=== PATIENT | male | born 1970 | race Two or more races ===

== ENCOUNTER 2017-05-31 14:19 | Inpatient (IN) | payer OTHER ==
[2017-05-31 16:29] VITALS: BMI 24.5
[2017-05-31] MEDS ORDERED: MAGNESIUM HYDROX 2400MG/30ML ORAL SUSPENSION 30 ML CUP PO PRN (17:07)
[2017-05-31] MEDS ORDERED: MENTHOL/PHENOL 1 EACH UD MM PRN (17:07)
[2017-05-31] MEDS ORDERED: MAGNESIUM CITRATE 300 ML BOTTLE PO PRN (17:07)
[2017-05-31] MEDS ORDERED: ACETAMINOPHEN 325 MG TABLET (FP) PO PRN (17:07)
[2017-05-31] MEDS ORDERED: IBUPROFEN 400 MG TABLET (FP) PO PRN (17:07)
[2017-05-31] MEDS ORDERED: LOPERAMIDE HCL 2 MG CAPSULE PO PRN (17:07)
[2017-05-31] MEDS ORDERED: MAG HYDROX/AL HYDROX/SIMETH 30 ML UNIT-DOSE CUP PO PRN (17:07)
[2017-05-31] MEDS ORDERED: guaiFENesin/D-METHORPHAN HB 10 ML UNIT-DOSE CUPS PO PRN (17:07)
[2017-05-31] MEDS ORDERED: P-EPHED 60MG/TRIPROLIDI 2.5MG TABLET PO PRN (17:07)
[2017-05-31] MEDS ORDERED: hydrOXYzine PAMOATE 50 MG CAPSULE (FP) PO PRN (17:07)
--- NOTE | 2017-05-31 17:07 | HP ---
CIWA Score - CIWA Score Nausea/Vomitin Muscle Tremors: 4-Moderate,w/Arms Extend Anxiety: 4-Mod. Anxious/Guarded Agitation: 4-Moderately Restless Paroxysmal Sweats: 3 Orientation: 1-Uncertain about Date Tacttile Disturbances: 1-Very Mild Itch/Numbness Auditory Disturbances: 0-None Visual Disturbances: 0-None Headache: 1-Very Mild CIWA-Ar Total Score: 21 Admission ROS S - HPI Chief Complaint: alcohol withdrawal sx Allergies/Adverse Reactions: Allergies Allergy/AdvReac Type Severity Reaction Status Date / Time No Known Allergies Allergy Verified 05/31/17 17:05 History of Present Illness: 47 yo m with h/o chronic alcoholism, drinks daily develops GINO when he does not drink has had several episodes of detox in past PMHX dm, HTN, no suicide attempts in past, no suicidal ideation at present no h/o seizures, no DTs. no blackouts or recent wt loss reported. Reports falling in shower 3 weeks ago and had stiches in ED at [facility] . He returned to [facility] ed and had them removed today. no pain. last drink yesterday Exam Limitations: No Limitations - Ebola screening Have you traveled outside of the country in the last 21 days: No Have you had contact with anyone from an Ebola affected area: No Have you been sick,other than usual withdrawal symptoms: No Do you have a fever: No - Review of Systems Constitutional: Chills, Diaphoresis, Night Sweats, Changes in sleep, Weight Stable EENT: reports: No Symptoms Reported Respiratory: reports: No Symptoms reported Cardiac: reports: No Symptoms Reported GI: reports: Diarrhea, Nausea, Poor Appetite, Vomiting, Indigestion, Abdominal cramping : reports: No Symptoms Reported Musculoskeletal: reports: No Symptoms Reported Integumentary: reports: Flushing, Sweating Neuro: reports: Headache, Numbness, Paresthesia, Tremors, Weakness Endocrine: reports: No Symptoms Reported Hematology: reports: No Symptoms Reported Psychiatric: reports: Judgement Intact, Mood/Affect Appropiate, Orientated x3, Anxious, Depressed Other Systems: Reviewed and Negative Patient History - Patient Medical History Hx Anemia: No Hx Asthma: No Hx Chronic Obstructive Pulmonary Disease (COPD): No Hx Cancer: No Hx Cardiac Disorders: No Hx Congestive Heart Failure: No Hx Hypertension: No Hx Hypercholesterolemia: Yes (RESOLVED--NO MEDS) Hx Pacemaker: No HX Cerebrovascular Accident: No Hx Seizures: No Hx Dementia: No Hx Diabetes: Yes ( NEWLY DX- ACCUCHECK =242 MG/DL; DID NOT START TAKING THE RX MEDS YET.) Hx Gastrointestinal Disorders: No Hx Liver Disease: No Hx Genitourinary Disorders: No Hx Sexually Transmitted Disorders: No Hx Renal Disease (ESRD): No Hx Thyroid Disease: No Hx Human Immunodeficiency Virus (HIV): No (NEGATIVE HX) Hx Hepatitis C: No Hx Depression: No Hx Suicide Attempt: No (DENIES) Hx Bipolar Disorder: No Hx Schizophrenia: No - Patient Surgical History Past Surgical History: No Anesthesia Reaction: No - PPD History Previous Implant?: Yes Documented Results: Negative w/o proof Implanted On Prior R Admission?: Yes Date: 10/14/14 PPD to be Administered?: Yes - Reproductive History Patient is a Female of Child Bearing Age (11 -55 yrs old): No Patient : No - Smoking Cessation Smoking history: Never smoked Have you smoked in the past 12 months: No If you are a former smoker, when did you quit?: STOPPED AT 17 YRS OLD Hx Chewing Tobacco Use: No Initiated information on smoking cessation: Yes 'Breaking Loose' booklet given: 05/31/17 - Substance & Tx. History Hx Alcohol Use: Yes Hx Substance Use: No Substance Use Type: Alcohol Hx Substance Use Treatment: Yes (multiple admissions for inpatient detox ) - Substances Abused Alcohol Route: Oral Frequency: Daily Amount used: 4 25 oz beers Age of first use: 19 Date of Last Use: 05/31/17 Family Disease History - Family Disease History Family Disease History: Diabetes: Mother, Sister (FOUR SISTERS WITH DM) Admission Physical Exam S - Vital Signs Vital Signs: Vital Signs - 24 hr 05/31/17 16:27 Temperature 96.2 F L Pulse Rate 94 H Respiratory 20 Rate Blood Pressure 130/81 - Physical General Appearance: Yes: Nourished, Disheveled, Mild Distress HEENTM: Yes: EOMI, Hearing grossly Normal, Normal ENT Inspection, Normocephalic , Normal Voice, JOSE C, Pharynx Normal, Other (healing head wound , no infection, stitches removed) Respiratory: Yes: Within Normal Limits, Chest Non-Tender, Lungs Clear, Normal Breath Sounds, No Respiratory Distress, No Accessory Muscle Use Neck: Yes: Within Normal Limits, No masses,lesions,Nodules, Supple, Trachea in good position Breast: Yes: Breast Exam Deferred Cardiology: Yes: Within Normal Limits, Regular Rhythm, Regular Rate, S1, S2 Abdominal: Yes: Within Normal Limits, Normal Bowel Sounds, Non Tender, Soft Genitourinary: Yes: Within Normal Limits Back: Yes: Within Normal Limits, Normal Inspection Musculoskeletal: Yes: full range of Motion, Gait Steady, Pelvis Stable, Joint Stiffness, Joint swelling (middle toe deforemdnon tender, no erytehma, some dusky discolouration non tender, scab on top, old) Extremities: Yes: Normal Capillary Refill, Normal Range of Motion, Non-Tender, Tremors, Pedal Edema (2+ pitting) 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, Fully Oriented, Alert, Motor Strength 5/5, Normal Response, Depressed Affect Integumentary: Yes: Diaphoresis, Moist Lymphatic: Yes: Within Normal Limits - Addiitonal Findings: withdrawal sx - Diagnostic (1) Alcohol dependence with uncomplicated withdrawal Current Visit: Yes Status: Acute (2) Diabetes mellitus Current Visit: Yes Status: Acute Qualifiers: Diabetes mellitus type: type 2 Diabetes mellitus complication status: without complication (3) Head trauma Current Visit: Yes Status: Acute Cleared for Admission [facility] - Detox or Rehab [facility] Level of Care: Medically Managed Detox Regimen/Protocol: Librium [facility] Breath Alcohol Content Breath Alcohol Content: 0.035 Urine Drug Screen - Results Drug Screen Negative: No Urine Drug Screen Results: BZO-Benzodiazepines
[2017-05-31] MEDS ORDERED: PATIENT'S OWN MEDICATION (NON-FORMULARY) (Metformin Hcl [Glucophage] 1,000 MG) PO SCH (17:15)
[2017-05-31] MEDS ORDERED: chlordiazePOXIDE HCL 25 MG CAPSULE PO ONE (17:23)
[2017-05-31] MEDS ORDERED: chlordiazePOXIDE HCL 25 MG CAPSULE ONE (20:04)
[2017-05-31 20:40] LABS: URINE APPEARANCE CLEAR; URINE BILIRUBIN NEGATIVE (NEGATIVE); URINE BLOOD NEGATIVE (NEGATIVE); URINE COLOR AMBER; URINE GLUCOSE (UA) NEGATIVE (NEGATIVE); URINE KETONE TRACE (NEGATIVE); URINE NITRITE NEGATIVE (NEGATIVE); URINE UROBILINOGEN 4.0 E.U/dl mg/dL (0.2-1.0)
[2017-05-31 20:52] LABS: URINE PROTEIN 1+ (NEGATIVE)
[2017-05-31 21:15] LABS: URINE MUCUS RARE; URINE RBC <1 /hpf (0-3); URINE WBC 1 /hpf (3-5)
[2017-05-31] MEDS: chlordiazePOXIDE HCL 25 MG CAPSULE PO SCH (22:42)
[2017-05-31] MEDS: THIAMINE HCL 100 MG TABLET (FP) PO SCH (22:42)
[2017-05-31] MEDS: diphenhydrAMINE HCL 50 MG CAPSULE PO PRN (22:44)
[2017-05-31 22:51] LABS: URINE LEUK ESTERASE Negative (NEGATIVE)
[2017-06-01] MEDS: diphenhydrAMINE HCL 50 MG CAPSULE PO PRN ×2 (00:38→22:44)
[2017-06-01] MEDS: chlordiazePOXIDE HCL 25 MG CAPSULE PO SCH ×4 (06:04→22:43)
[2017-06-01] MEDS: metFORMIN HCL 500 MG TABLET (FP) PO SCH (06:13)
--- NOTE | 2017-06-01 08:49 | CONSULT ---
[facility] Psychiatric Consult - Data Date of interview: 06/01/17 Admission source: [facility] Identifying data: This is 47 years old male with psychiatric hospitalization history bintoxicate dwith: Alcohol Substance Abuse History: Urine Drug Screen Results: BZO-Benzodiazepines. Smoking history: Never smoked. Have you smoked in the past 12 months: No. If you are a former smoker, when did you quit?: STOPPED AT 17 YRS OLD. Hx Chewing Tobacco Use: No. Initiated information on smoking cessation: Yes. 'Breaking Loose' booklet given: 05/31/17. - Substance & Tx. History. Hx Alcohol Use: Yes. Hx Substance Use: No. Substance Use Type: Alcohol. Hx Substance Use Treatment: Yes (multiple admissions for inpatient detox ). - Substances Abused. Alcohol. Route: Oral. Frequency: Daily. Amount used: 4 25 oz beers. Age of first use: 19. Date of Last Use: 05/31/17 Medical History: Hypercholesterolemia, DM-2, Head trauma history, using wheelchair after head imjury Psychiatric History: Reports unclear psycvhiatric admission 2 weeks ago at [facility] after falling episode and following head injury Physical/Sexual Abuse/Trauma History: Denies Additional Comment: Urine Drug Screen Results: BZO-Benzodiazepines Mental Status Exam - Mental Status Exam Alert and Oriented to: Person Cognitive Function: Fair Patient Appearance: Unkempt Mood: Withdrawn, Anxious Affect: Flat Patient Behavior: Cooperative Speech Pattern: Slurred Voice Loudness: Mildly Soft/Quiet Thought Process: Circumstantial Thought Disorder: Being Controlled Hallucinations: Denies Suicidal Ideation: Denies Homicidal Ideation: Denies Insight/Judgement: Fair Sleep: Fair Appetite: Fair Muscle strength/Tone: Mild Hypotonicity Gait/Station: Deferred Additional Comments: Observation. Detox Unit Care Protocol Psychiatric Findings - Problem List ([place] 1, 2,3) (1) Alcohol dependence with uncomplicated withdrawal Current Visit: Yes Status: Acute (2) Alcohol dependence Current Visit: No Status: Acute (3) Alcohol-induced mood disorder Current Visit: Yes Status: Suspected - Initial Treatment Plan Initial Treatment Plan: Observation. Detox Unit Care Protocol
[2017-06-01 10:42] LABS: MCHC 32.3 g/dl (32.0-35.9); MEAN CELL VOLUME 98.8 fl (80-96); MEAN PLT VOLUME 10.8 fl (7.5-11.1); RDW 15.6 % (11.9-15.9); WHITE BLOOD COUNT 4.7 K/mm3 (4.0-10.0)
[2017-06-01] MEDS: PRENATAL VITAMINS W/ FOLIC ACID TABLET (FP) PO SCH (10:46)
[2017-06-01 10:51] LABS: PLATELET COUNT 25 K/MM3 (134-434)
[2017-06-01 10:53] LABS: ALBUMIN 2.2 g/dl (3.4-5.0); ANION GAP 9 (8-16); CALCIUM 8.5 mg/dL (8.5-10.1); CO2 25 mmol/L (21-32); GLUCOSE,RANDOM 152 mg/dL (74-106)
[2017-06-01 10:58] LABS: ALK PHOS 211 U/L (45-117); BILIRUBIN,TOTAL 4.3 mg/dL (0.2-1.0); CREATININE 0.6 mg/dL (0.7-1.3); SGOT/AST 168 U/L (15-37); SGPT/ALT 27 U/L (12-78); TOT PROT 8.3 g/dl (6.4-8.2)
--- NOTE | 2017-06-01 11:20 | PN ---
[facility] CIWA - CIWA Score Nausea/Vomitin-No Nausea/No Vomiting Muscle Tremors: 4-Moderate,w/Arms Extend Anxiety: 4-Mod. Anxious/Guarded Agitation: 4-Moderately Restless Paroxysmal Sweats: 1-Minimal Palms Moist Orientation: 0-Oriented Tacttile Disturbances: 3-Moderate Itch/Numb/Burn Auditory Disturbances: 0-None Visual Disturbances: 0-None Headache: 0-None Present CIWA-Ar Total Score: 16 S Progress Note (SOAP) Subjective: ANXIETY,SWEATS/CHILLS,SLIGHT TREMORS,UNSTABLE GAIT(ENCOURAGED WHEELCHAIR WHILE OOB),C/O INSOMNIA. PT HAS A HX DM, HTN AND HYPERLIPIDEMIA. HIS RECENT HOME MEDS IN HIS PHARMACY OF 05/23/17 INCLUDE: METFORMIN 1000 MG PO TWICE A DAY WITH MEALS;JANUVIA 100 MG 1 TAB PO DAILY; GLIPIZIDE XL 10 MG 1 TAB PO DAILY METOPROLOL SUCCINATE 25 MG ER 1 TAB DAILY; LOSARTAN POTASSIUM 50 MG 1 TAB PO DAILY; ATORVASTATIN CALCIUM 40 MG 1 TAB PO DAILY. Objective: 06/01/17 11:20 Vital Signs Temperature 97.0 F L 06/01/17 09:30 Pulse Rate 90 06/01/17 09:30 Respiratory Rate 20 06/01/17 09:30 Blood Pressure 139/70 06/01/17 09:30 O2 Sat by Pulse Oximetry (%) Laboratory Last Values WBC 4.7 K/mm3 (4.0-10.0) 06/01/17 07:20 RBC 3.23 M/mm3 (4.00-5.60) L 06/01/17 07:20 Hgb 10.3 GM/dL (11.7-16.9) L 06/01/17 07:20 Hct 31.9 % (35.4-49) L 06/01/17 07:20 MCV 98.8 fl (80-96) H 06/01/17 07:20 MCH 32.0 pg (25.7-33.7) 06/01/17 07:20 MCHC 32.3 g/dl (32.0-35.9) 06/01/17 07:20 RDW 15.6 % (11.9-15.9) 06/01/17 07:20 Plt Count 25 K/MM3 (134-434) L* 06/01/17 07:20 MPV 10.8 fl (7.5-11.1) 06/01/17 07:20 Sodium 135 mmol/L (136-145) L 06/01/17 07:20 Potassium 3.2 mmol/L (3.5-5.1) L 06/01/17 07:20 Chloride 101 mmol/L (98-107) 06/01/17 07:20 Carbon Dioxide 25 mmol/L (21-32) 06/01/17 07:20 Anion Gap 9 (8-16) 06/01/17 07:20 BUN 5 mg/dL (7-18) L 06/01/17 07:20 Creatinine 0.6 mg/dL (0.7-1.3) L 06/01/17 07:20 Creat Clearance w eGFR > 60 (>60) 06/01/17 07:20 POC Glucometer 150 UNITS (()) 06/01/17 06:07 Random Glucose 152 mg/dL (74-106) H 06/01/17 07:20 Calcium 8.5 mg/dL (8.5-10.1) 06/01/17 07:20 Total Bilirubin 4.3 mg/dL (0.2-1.0) H 06/01/17 07:20 AST 168 U/L (15-37) H 06/01/17 07:20 ALT 27 U/L (12-78) 06/01/17 07:20 Alkaline Phosphatase 211 U/L (45-117) H 06/01/17 07:20 Total Protein 8.3 g/dl (6.4-8.2) H 06/01/17 07:20 Albumin 2.2 g/dl (3.4-5.0) L 06/01/17 07:20 Urine Color [place]att[place] 05/31/17 20:00 Urine Appearance Clear 05/31/17 20:00 Urine pH 7.0 (5.0-8.0) D 05/31/17 20:00 Ur Specific [place] 1.015 (1.005-1.025) 05/31/17 20:00 Urine Protein 1+ (NEGATIVE) H 05/31/17 20:00 Urine Glucose (UA) Negative (NEGATIVE) 05/31/17 20:00 Urine Ketones Trace (NEGATIVE) H 05/31/17 20:00 Urine Blood Negative (NEGATIVE) 05/31/17 20:00 Urine Nitrite Negative (NEGATIVE) 05/31/17 20:00 Urine Bilirubin Negative (NEGATIVE) 05/31/17 20:00 Urine Urobilinogen 4.0 e.u/dl mg/dL (0.2-1.0) 05/31/17 20:00 Ur Leukocyte Esterase Negative (NEGATIVE) 05/31/17 20:00 Urine RBC <1 /hpf (0-3) 05/31/17 20:00 Urine WBC 1 /hpf (3-5) 05/31/17 20:00 Ur Epithelial Cells Rare /hpf (FEW) 05/31/17 20:00 Urine Mucus Rare 05/31/17 20:00 PLT 25 ; K+ = 3.2; HGB/HCT = 10.3/31.9; ELEVATED AST/ALP =168/211 Assessment: 06/01/17 11:24 WITHDRAWAL SX HYPOKALEMIA THROMBOCYTOPENIA ANEMIA UNKNOWN ETIOLOGY Plan: CONTINUE DETOX MONITOR PT'S STATUS FEOSOL DIRECTED KDUR 20 MEQ PO BID REPEAT LFT/CBC ON 06/02/17
[2017-06-01] MEDS ORDERED: POTASSIUM CHLORIDE TABS 20 MEQ TABLET.ER (FP) PO ONE (11:48)
[2017-06-01] MEDS ORDERED: FERROUS SO4 325 MG TABLET (FP) PO ONE (11:49)
[2017-06-01] MEDS ORDERED: FLU VACCINE QUAD 60 MCG/0.5 ML (MDV 17-18) IM ONE (12:00)
[2017-06-01] MEDS: chlordiazePOXIDE HCL 25 MG CAPSULE PO PRN ×2 (13:07→21:04)
--- NOTE | 2017-06-01 13:07 | EKG ---
Test Reason : Blood Pressure : / mmHG Vent. Rate : 081 BPM Atrial Rate : 081 BPM P-R Int : 120 ms QRS Dur : 136 ms QT Int : 436 ms P-R-T Axes : 069 075 036 degrees QTc Int : 506 ms NORMAL SINUS RHYTHM WITH SINUS ARRHYTHMIA RIGHT BUNDLE BRANCH BLOCK ABNORMAL ECG NO PREVIOUS ECGS AVAILABLE Confirmed by DILLON VARGHESE, SILVESTRE ([id number]) on 06/01/2017 1:07:00 PM Referred By: Confirmed By:SILVESTRE CARRANZA MD
[2017-06-01] MEDS: FERROUS SO4 325 MG TABLET (FP) PO SCH (17:39)
[2017-06-01] MEDS: POTASSIUM CHLORIDE ORAL LIQUID 20 MEQ/15 ML PO SCH (19:01)
--- NOTE | 2017-06-01 21:13 | PN ---
[facility] Progress Note Note: Nurse reports patient ambulating with unsteady gait, very confused and hallucinating. V/S b/P 154/75, HR 107, T 99.7, B/S 204mg/dl. Insulin sliding scale ordered, ammonia level ordered and 1:1 Constant observation initiated. Will continue to monitor patient.
--- NOTE | 2017-06-01 21:22 | PN ---
S Progress Note (SOAP) Subjective: Nurse reports patient with unsteady gait, very confused and hallucinating. Objective: Vitals: B/P 154/75, P107, T99.7, B/S 204. Laboratory Last Values WBC 4.7 K/mm3 (4.0-10.0) 06/01/17 07:20 RBC 3.23 M/mm3 (4.00-5.60) L 06/01/17 07:20 Hgb 10.3 GM/dL (11.7-16.9) L 06/01/17 07:20 Hct 31.9 % (35.4-49) L 06/01/17 07:20 MCV 98.8 fl (80-96) H 06/01/17 07:20 MCH 32.0 pg (25.7-33.7) 06/01/17 07:20 MCHC 32.3 g/dl (32.0-35.9) 06/01/17 07:20 RDW 15.6 % (11.9-15.9) 06/01/17 07:20 Plt Count 25 K/MM3 (134-434) L* 06/01/17 07:20 MPV 10.8 fl (7.5-11.1) 06/01/17 07:20 Sodium 135 mmol/L (136-145) L 06/01/17 07:20 Potassium 3.2 mmol/L (3.5-5.1) L 06/01/17 07:20 Chloride 101 mmol/L (98-107) 06/01/17 07:20 Carbon Dioxide 25 mmol/L (21-32) 06/01/17 07:20 Anion Gap 9 (8-16) 06/01/17 07:20 BUN 5 mg/dL (7-18) L 06/01/17 07:20 Creatinine 0.6 mg/dL (0.7-1.3) L 06/01/17 07:20 Creat Clearance w eGFR > 60 (>60) 06/01/17 07:20 POC Glucometer 204 UNITS (()) 06/01/17 16:19 Random Glucose 152 mg/dL (74-106) H 06/01/17 07:20 Calcium 8.5 mg/dL (8.5-10.1) 06/01/17 07:20 Total Bilirubin 4.3 mg/dL (0.2-1.0) H 06/01/17 07:20 AST 168 U/L (15-37) H 06/01/17 07:20 ALT 27 U/L (12-78) 06/01/17 07:20 Alkaline Phosphatase 211 U/L (45-117) H 06/01/17 07:20 Total Protein 8.3 g/dl (6.4-8.2) H 06/01/17 07:20 Albumin 2.2 g/dl (3.4-5.0) L 06/01/17 07:20 Urine Color Hattie 05/31/17 20:00 Urine Appearance Clear 05/31/17 20:00 Urine pH 7.0 (5.0-8.0) D 05/31/17 20:00 Ur Specific [place] 1.015 (1.005-1.025) 05/31/17 20:00 Urine Protein 1+ (NEGATIVE) H 05/31/17 20:00 Urine Glucose (UA) Negative (NEGATIVE) 05/31/17 20:00 Urine Ketones Trace (NEGATIVE) H 05/31/17 20:00 Urine Blood Negative (NEGATIVE) 05/31/17 20:00 Urine Nitrite Negative (NEGATIVE) 05/31/17 20:00 Urine Bilirubin Negative (NEGATIVE) 05/31/17 20:00 Urine Urobilinogen 4.0 e.u/dl mg/dL (0.2-1.0) 05/31/17 20:00 Ur Leukocyte Esterase Negative (NEGATIVE) 05/31/17 20:00 Urine RBC <1 /hpf (0-3) 05/31/17 20:00 Urine WBC 1 /hpf (3-5) 05/31/17 20:00 Ur Epithelial Cells Rare /hpf (FEW) 05/31/17 20:00 Urine Mucus Rare 05/31/17 20:00 RPR Titer Nonreactive (NONREACTIVE) 06/01/17 07:20 Labs reviewed. Ammonia level ordered. Assessment: Safety precautions
[2017-06-01] MEDS ORDERED: POTASSIUM CHLORIDE TABS 20 MEQ TABLET.ER (FP) PO SCH (22:00)
[2017-06-01] MEDS: THIAMINE HCL 100 MG TABLET (FP) PO SCH (22:43)
[2017-06-02] MEDS: diphenhydrAMINE HCL 50 MG CAPSULE PO PRN (01:48)
[2017-06-02] MEDS: chlordiazePOXIDE HCL 25 MG CAPSULE PO PRN (01:48)
[2017-06-02] MEDS: chlordiazePOXIDE HCL 25 MG CAPSULE PO SCH ×3 (04:24→17:33)
[2017-06-02] MEDS: metFORMIN HCL 500 MG TABLET (FP) PO SCH (06:36)
[2017-06-02] MEDS ORDERED: INSULIN (NOVOLOG) ASPART 100 UNITS/ML 10ML VIAL ONE (06:38)
[2017-06-02] MEDS: INSULIN SLIDING SCALE (NOVOLOG) 1 VIAL SQ SCH ×2 (07:50→16:30)
[2017-06-02] MEDS: FERROUS SO4 325 MG TABLET (FP) PO SCH ×2 (08:02→17:32)
[2017-06-02 09:45] LABS: MCH 32.4 pg (25.7-33.7); MEAN CELL VOLUME 98.2 fl (80-96); MEAN PLT VOLUME 11.4 fl (7.5-11.1); RDW 15.6 % (11.9-15.9); WHITE BLOOD COUNT 7.5 K/mm3 (4.0-10.0)
[2017-06-02 09:48] LABS: PLATELET COUNT 28 K/MM3 (134-434)
[2017-06-02] MEDS ORDERED: LOSARTAN POTASSIUM 50 MG TABLET (FP) PO SCH (10:00)
[2017-06-02] MEDS ORDERED: METOPROLOL SUCCINATE 25 MG TAB.SR.24H (FP) PO SCH (10:00)
[2017-06-02 10:24] LABS: INR 1.44 (0.82-1.09); PROTHROMBIN TIME (PATIENT) 16.3 SEC (9.98-11.88)
[2017-06-02 10:28] LABS: ALBUMIN 2.7 g/dl (3.4-5.0); BILIRUBIN,DIRECT 3.1 mg/dL (0.0-0.2); BILIRUBIN,TOTAL 5.3 mg/dL (0.2-1.0); TOT PROT 9.9 g/dl (6.4-8.2)
--- NOTE | 2017-06-02 10:41 | PN ---
[facility] CIWA - CIWA Score Nausea/Vomitin-No Nausea/No Vomiting Muscle Tremors: 5 Anxiety: 4-Mod. Anxious/Guarded Agitation: 4-Moderately Restless Paroxysmal Sweats: 1-Minimal Palms Moist Orientation: 0-Oriented Tacttile Disturbances: 3-Moderate Itch/Numb/Burn Auditory Disturbances: 0-None Visual Disturbances: 0-None Headache: 0-None Present CIWA-Ar Total Score: 17 [facility] Progress Note (SOAP) Subjective: RECIEVED PT SLEEPING IN BED. PT APPEARS VERY EXHAUSTED FROM SLEEPLESS NIGHT. ON 1:1 MONITORING DUE TO REPORT OF DISORIENTATION AND UNSTABLE GAIT. TREMORS, ANXIETY. Objective: 06/02/17 10:40 Vital Signs 06/02/17 06:42 Temperature 96.2 F L Pulse Rate 122 H Respiratory 18 Rate Blood Pressure 146/88 Laboratory Tests 05/31/17 05/31/17 06/01/17 17:22 20:00 06:07 WBC RBC Hgb Hct MCV MCH MCHC RDW Plt Count MPV Sodium Potassium Chloride Carbon Dioxide Anion Gap BUN Creatinine Creat Clearance w eGFR POC Glucometer 215 150 Random Glucose Calcium Total Bilirubin AST ALT Alkaline Phosphatase Total Protein Albumin Urine Color Hattie Urine Appearance Clear Urine pH 7.0 D Ur Specific [place] 1.015 Urine Protein 1+ H Urine Glucose (UA) Negative Urine Ketones Trace H Urine Blood Negative Urine Nitrite Negative Urine Bilirubin Negative Urine Urobilinogen 4.0 e.u/dl Ur Leukocyte Esterase Negative Urine RBC <1 Urine WBC 1 Ur Epithelial Cells Rare Urine Mucus Rare RPR Titer Hepatitis C Antibody 06/01/17 06/01/17 06/01/17 07:20 07:20 07:20 WBC 4.7 RBC 3.23 L Hgb 10.3 L Hct 31.9 L MCV 98.8 H MCH 32.0 MCHC 32.3 RDW 15.6 Plt Count 25 L* MPV 10.8 Sodium 135 L Potassium 3.2 L Chloride 101 Carbon Dioxide 25 Anion Gap 9 BUN 5 L Creatinine 0.6 L Creat Clearance w eGFR > 60 POC Glucometer Random Glucose 152 H Calcium 8.5 Total Bilirubin 4.3 H AST 168 H ALT 27 Alkaline Phosphatase 211 H Total Protein 8.3 H Albumin 2.2 L Urine Color Urine Appearance Urine pH Ur Specific [place] Urine Protein Urine Glucose (UA) Urine Ketones Urine Blood Urine Nitrite Urine Bilirubin Urine Urobilinogen Ur Leukocyte Esterase Urine RBC Urine WBC Ur Epithelial Cells Urine Mucus RPR Titer Nonreactive Hepatitis C Antibody 06/01/17 06/01/17 06/02/17 07:20 16:19 05:41 WBC RBC Hgb Hct MCV MCH MCHC RDW Plt Count MPV Sodium Potassium Chloride Carbon Dioxide Anion Gap BUN Creatinine Creat Clearance w eGFR POC Glucometer 204 182 Random Glucose Calcium Total Bilirubin AST ALT Alkaline Phosphatase Total Protein Albumin Urine Color Urine Appearance Urine pH Ur Specific [place] Urine Protein Urine Glucose (UA) Urine Ketones Urine Blood Urine Nitrite Urine Bilirubin Urine Urobilinogen Ur Leukocyte Esterase Urine RBC Urine WBC Ur Epithelial Cells Urine Mucus RPR Titer Hepatitis C Antibody 0.3 06/02/17 07:10 WBC 7.5 D RBC 3.41 L Hgb 11.0 L Hct 33.5 L MCV 98.2 H MCH 32.4 MCHC 33.0 RDW 15.6 Plt Count 28 L* MPV 11.4 H Sodium Potassium Chloride Carbon Dioxide Anion Gap BUN Creatinine Creat Clearance w eGFR POC Glucometer Random Glucose Calcium Total Bilirubin AST ALT Alkaline Phosphatase Total Protein Albumin Urine Color Urine Appearance Urine pH Ur Specific [place] Urine Protein Urine Glucose (UA) Urine Ketones Urine Blood Urine Nitrite Urine Bilirubin Urine Urobilinogen Ur Leukocyte Esterase Urine RBC Urine WBC Ur Epithelial Cells Urine Mucus RPR Titer Hepatitis C Antibody Assessment: 06/02/17 10:39 SEVERE WITHDRAWAL SX Plan: CONTINUE DETOX CONTINUE TO MONITOR PT
[2017-06-02] MEDS: PRENATAL VITAMINS W/ FOLIC ACID TABLET (FP) PO SCH (11:10)
[2017-06-02] MEDS: POTASSIUM CHLORIDE ORAL LIQUID 20 MEQ/15 ML PO SCH ×2 (11:10→18:58)
[2017-06-02] MEDS: LACTULOSE 20 GM/30 ML UDC (FOR ORAL USE ONLY) PO SCH ×3 (13:30→22:58)
--- NOTE | 2017-06-02 13:53 | PN ---
[facility] Progress Note Note: PT CONTINUES TO BE DISORIENTED AND RESTLESS. POOR FOOD/FLUID INTAKE. VERY UNSTABLE GAIT REQUIRING 1:1 ASSISTANCE. Vital Signs Temperature 98.2 F 06/02/17 11:40 Pulse Rate 89 06/02/17 11:40 Respiratory Rate 20 06/02/17 11:40 Blood Pressure 109/55 06/02/17 11:40 O2 Sat by Pulse Oximetry (%) Laboratory Tests 05/31/17 05/31/17 06/01/17 17:22 20:00 06:07 WBC RBC Hgb Hct MCV MCH MCHC RDW Plt Count MPV PT with INR INR Sodium Potassium Chloride Carbon Dioxide Anion Gap BUN Creatinine Creat Clearance w eGFR POC Glucometer 215 150 Random Glucose Calcium Total Bilirubin Direct Bilirubin AST ALT Alkaline Phosphatase Ammonia Total Protein Albumin Urine Color Hattie Urine Appearance Clear Urine pH 7.0 D Ur Specific [place] 1.015 Urine Protein 1+ H Urine Glucose (UA) Negative Urine Ketones Trace H Urine Blood Negative Urine Nitrite Negative Urine Bilirubin Negative Urine Urobilinogen 4.0 e.u/dl Ur Leukocyte Esterase Negative Urine RBC <1 Urine WBC 1 Ur Epithelial Cells Rare Urine Mucus Rare RPR Titer Hepatitis C Antibody 06/01/17 06/01/17 06/01/17 07:20 07:20 07:20 WBC 4.7 RBC 3.23 L Hgb 10.3 L Hct 31.9 L MCV 98.8 H MCH 32.0 MCHC 32.3 RDW 15.6 Plt Count 25 L* MPV 10.8 PT with INR INR Sodium 135 L Potassium 3.2 L Chloride 101 Carbon Dioxide 25 Anion Gap 9 BUN 5 L Creatinine 0.6 L Creat Clearance w eGFR > 60 POC Glucometer Random Glucose 152 H Calcium 8.5 Total Bilirubin 4.3 H Direct Bilirubin AST 168 H ALT 27 Alkaline Phosphatase 211 H Ammonia Total Protein 8.3 H Albumin 2.2 L Urine Color Urine Appearance Urine pH Ur Specific [place] Urine Protein Urine Glucose (UA) Urine Ketones Urine Blood Urine Nitrite Urine Bilirubin Urine Urobilinogen Ur Leukocyte Esterase Urine RBC Urine WBC Ur Epithelial Cells Urine Mucus RPR Titer Nonreactive Hepatitis C Antibody 06/01/17 06/01/17 06/02/17 07:20 16:19 05:41 WBC RBC Hgb Hct MCV MCH MCHC RDW Plt Count MPV PT with INR INR Sodium Potassium Chloride Carbon Dioxide Anion Gap BUN Creatinine Creat Clearance w eGFR POC Glucometer 204 182 Random Glucose Calcium Total Bilirubin Direct Bilirubin AST ALT Alkaline Phosphatase Ammonia Total Protein Albumin Urine Color Urine Appearance Urine pH Ur Specific [place] Urine Protein Urine Glucose (UA) Urine Ketones Urine Blood Urine Nitrite Urine Bilirubin Urine Urobilinogen Ur Leukocyte Esterase Urine RBC Urine WBC Ur Epithelial Cells Urine Mucus RPR Titer Hepatitis C Antibody 0.3 06/02/17 06/02/17 06/02/17 07:10 07:10 07:10 WBC 7.5 D RBC 3.41 L Hgb 11.0 L Hct 33.5 L MCV 98.2 H MCH 32.4 MCHC 33.0 RDW 15.6 Plt Count 28 L* MPV 11.4 H PT with INR 16.30 H INR 1.44 H Sodium Potassium Chloride Carbon Dioxide Anion Gap BUN Creatinine Creat Clearance w eGFR POC Glucometer Random Glucose Calcium Total Bilirubin 5.3 H D Direct Bilirubin 3.1 H AST 172 H ALT 34 D Alkaline Phosphatase 277 H D Ammonia Total Protein 9.9 H Albumin 2.7 L D Urine Color Urine Appearance Urine pH Ur Specific [place] Urine Protein Urine Glucose (UA) Urine Ketones Urine Blood Urine Nitrite Urine Bilirubin Urine Urobilinogen Ur Leukocyte Esterase Urine RBC Urine WBC Ur Epithelial Cells Urine Mucus RPR Titer Hepatitis C Antibody 06/02/17 07:10 WBC RBC Hgb Hct MCV MCH MCHC RDW Plt Count MPV PT with INR INR Sodium Potassium Chloride Carbon Dioxide Anion Gap BUN Creatinine Creat Clearance w eGFR POC Glucometer Random Glucose Calcium Total Bilirubin Direct Bilirubin AST ALT Alkaline Phosphatase Ammonia 116 H Total Protein Albumin Urine Color Urine Appearance Urine pH Ur Specific [place] Urine Protein Urine Glucose (UA) Urine Ketones Urine Blood Urine Nitrite Urine Bilirubin Urine Urobilinogen Ur Leukocyte Esterase Urine RBC Urine WBC Ur Epithelial Cells Urine Mucus RPR Titer Hepatitis C Antibody PLAN: TRANSFER TO [facility] VIA AMBULANCE FOR FURTHER EVALUATION AND STABILIZATION TREATMENT. SPOKE WITH DR DAY AT [facility].
[2017-06-02 14:28] VITALS: BP 119/79; PULSE 117; TEMP 98.1
[2017-06-02] MEDS ORDERED: ATORVASTATIN CA 40 MG TABLET (FP) PO SCH (22:00)
[2017-06-02] MEDS: THIAMINE HCL 100 MG TABLET (FP) PO SCH (23:00)
[2017-06-02] MEDS ORDERED: chlordiazePOXIDE 5 MG CAPSULE PO SCH (23:00)
[2017-06-03] MEDS ORDERED: FLU VACCINE QUAD 60 MCG/0.5 ML (MDV 17-18) IM ONE (12:00)
[2017-06-03] MEDS ORDERED: chlordiazePOXIDE HCL 10 MG CAPSULE PO SCH (23:00)
== END 2017-06-02 23:04 | disposition short-term general hospital (02) | DRG 775 ==
LOC: YASAS 14:19 → Y3N 17:58
PROVIDERS: ADMIT Internal Medicine; ATTEND Internal Medicine
PROC: HZ2ZZZZ Detoxification Services for Substance Abuse Treatment (ICD-10-PCS; principal; 2017-05-31)
DX: F10.230 Alcohol dependence with withdrawal, uncomplicated (principal); F10.24 Alcohol dependence with alcohol-induced mood disorder; I10 Essential (primary) hypertension; E11.9 Type 2 diabetes mellitus without complications; E78.5 Hyperlipidemia, unspecified; E87.6 Hypokalemia; D50.8 Other iron deficiency anemias
CPT/HCPCS: 36415; 80053; 80076; 81003; 81015; 82140; 85027; 85610; 86593; 86803; 93005; 93010